=== PATIENT | male | born 1955 | race African-American/Black ===

== ENCOUNTER 2017-04-29 21:43 | Emergency (ER) | payer MEDICAID ==
[~2017-04-29] VITALS: Ht 175.3 cm; Wt 84.0 kg
[~2017-04-29 21:43] MED LIST: AMLO10TA80 PO; ASPI-1159 PO; CARB200T PO; DOXA4TAB3 PO; HYDR25TA PO; METO-385 PO
[2017-04-29 23:23] VITALS: BP 160/72
== END 2017-04-30 02:15 | disposition left against medical advice (07) ==
LOC: ER 21:44
DX: R09.81 Nasal congestion (principal); Z53.21 Procedure and treatment not carried out due to patient leaving prior to being seen by health care provider

== ENCOUNTER 2017-04-30 06:20 | Emergency (ER) | payer MEDICAID ==
[~2017-04-30] VITALS: Ht 177.8 cm; Wt 85.0 kg
[2017-04-30 09:13] VITALS: BP 140/78
== END 2017-04-30 09:45 | disposition home or self-care (01) ==
LOC: ER 06:35
DX: T48.5X1A Poisoning by other anti-common-cold drugs, accidental (unintentional), initial encounter (principal); R09.81 Nasal congestion; I10 Essential (primary) hypertension; Z79.82 Long term (current) use of aspirin; Y92.89 Other specified places as the place of occurrence of the external cause
CPT/HCPCS: 99283

== ENCOUNTER 2019-06-12 16:23 | Emergency (ER) | payer MEDICAID ==
[~2019-06-12] VITALS: Ht 180.3 cm; Wt 84.0 kg
[~2019-06-12 16:23] MED LIST changes: -ASPI-1159 PO; +ASPI-1393 PO
[2019-06-12 16:26] VITALS: BP 125/70
== END 2019-06-12 17:56 | disposition home or self-care (01) ==
LOC: ER 16:23
DX: R09.81 Nasal congestion (principal); I10 Essential (primary) hypertension; Z79.82 Long term (current) use of aspirin; Z79.899 Other long term (current) drug therapy
CPT/HCPCS: 99283

== ENCOUNTER 2022-10-05 18:38 | Emergency (ER) | payer OTHER, MEDICAID ==
[~2022-10-05] VITALS: Ht 177.8 cm; Wt 87.0 kg
[~2022-10-05 18:38] MED LIST changes: -ASPI-1393 PO; +ASPI-1497 PO
[2022-10-05 18:53] VITALS: BP 152/92
[2022-10-05] MEDS ORDERED: AZIT250T12 MT (21:56)
== END 2022-10-05 22:08 | disposition home or self-care (01) ==
LOC: ER 18:38
DX: J34.89 Other specified disorders of nose and nasal sinuses (principal); I10 Essential (primary) hypertension
CPT/HCPCS: 99281